=== PATIENT | female | born 1965 | race Caucasian/White ===

== ENCOUNTER 2018-02-18 15:58 | Emergency (ER) | payer OTHER ==
[2018-02-18 16:04] VITALS: BP 172/92; PULSE 79; TEMP 98
--- NOTE | 2018-02-18 16:04 | PDOC ---
Rapid Medical Evaluation Chief Complaint: Bite Time Seen by Provider: 02/18/18 16:02 Medical Evaluation: Allergies Allergy/AdvReac Type Severity Reaction Status Date / Time No Known Drug Allergies Allergy Verified 11/23/13 07:41 02/18/18 16:03 I have performed a brief in person evaluation of the patient. The patient presents with a CC of: cat bite PE: Skin: Pt has scratches to the right hand. Lungs: Clear Heart:RRR MS: Moves all extremities without difficulty Neuro: Alert and oriented Psych: Approrpriate affect I have ordered the following: nothing at this time. The patient will proceed to the [facility] for further evaluation. Discharge Disposition - Diagnosis Cat bite Qualifiers: Encounter type: initial encounter Qualified Code(s): W55.01XA - Bitten by cat, initial encounter - Referrals Referrals: Federico Schmidt MD [Primary Care Provider] - - Patient Instructions - Post Discharge Activity
[2018-02-18] MEDS ORDERED: AMOX TR/POT CLAV 875MG/125MG TABLETS (FP) PO STA (16:55)
[2018-02-18] MEDS ORDERED: DIPHTH,PERTUSS(ACELL),TET 0.5 ML DISP.SYRIN IM ONE (16:55)
[2018-02-18] MEDS ORDERED: BACITRACIN 15 GM TUBE TOPICAL OINTMENT TP ONE (16:57)
[2018-02-18] MEDS ORDERED: AMOX TR/POT CLAV 875MG/125MG TABLETS (FP) ONE (17:04)
[2018-02-18] MEDS ORDERED: BACITRACIN 15 GM TUBE TOPICAL OINTMENT ONE (17:04)
--- NOTE | 2018-02-18 17:09 | PDOC ---
History of Present Illness - General Chief Complaint: Bite Stated Complaint: ANIMAL BITE Time Seen by Provider: 02/18/18 16:02 History Source: Patient Exam Limitations: No Limitations - History of Present Illness Initial Comments: 02/18/18 17:09 52 yr female bit to her right hand by stray cat. cat was captured by [facility] and they [facility] the cat [facility] where it is being observed. Pt has a history of DM, tetanus unknown. pt washed hand GREEN BELT. Timing/Duration: reports: just prior to arrival Severity: Yes: moderate Location: reports: hands (right ) Past History - Past Medical History Allergies/Adverse Reactions: Allergies Allergy/AdvReac Type Severity Reaction Status Date / Time No Known Drug Allergies Allergy Verified 02/18/18 16:04 Home Medications: Ambulatory Orders Levothyroxine [Synthroid -] 25 mcg PO DAILY 09/15/12 Metoprolol Tartrate [Lopressor -] 25 mg PO BID 09/15/12 metFORMIN HCL [Glucophage -] 1,000 mg PO BID 09/15/12 Multivitamins [Multivit ([facility] Formulary)] 1 tab PO DAILY 11/19/13 Paroxetine HCl [Paxil] 20 mg PO HS 11/19/13 Topiramate [Topamax] 25 mg PO BID 11/19/13 Ibuprofen [Motrin -] 600 mg PO Q6H PRN #30 tablet 11/23/13 Amoxicillin/Potassium Clav [Augmentin 875-125 Tablet] 1 each PO BID #10 tablet 02/18/18 Anemia: No Asthma: No Cancer: No Cardiac Disorders: No CVA: No COPD: No CHF: No Dementia: No Diabetes: Yes GI Disorders: No Disorders: No HTN: Yes Hypercholesterolemia: Yes Liver Disease: No Seizures: No Thyroid Disease: Yes - Surgical History Abdominal Surgery: Yes (lavell valenzuela) Appendectomy: No Cardiac Surgery: No Cholecystectomy: Yes Lung Surgery: No Neurologic Surgery: No Orthopedic Surgery: No - Suicide/Smoking/Psychosocial Hx Smoking Status: No Smoking History: Never smoked Have you smoked in the past 12 months: No Number of Cigarettes Smoked Daily: 0 Hx Alcohol Use: No Drug/Substance Use Hx: No Substance Use Type: None Hx Substance Use Treatment: No Review of Systems - Review of Systems Able to Perform ROS?: Yes Is the patient limited Japanese proficient: No Constitutional: No: Symptoms Reported HEENTM: No: Symptoms Reported Respiratory: No: Symptoms reported Cardiac (ROS): No: Symptoms Reported ABD/GI: No: Symptoms Reported Integumentary: Yes: Symptoms Reported *Physical Exam - Vital Signs Last Vital Signs Temp Pulse Resp BP Pulse Ox 98 F 79 18 172/92 H 99 02/18/18 16:02 02/18/18 16:02 02/18/18 16:02 02/18/18 16:02 02/18/18 16:02 - Physical Exam General Appearance: Yes: Nourished, Appropriately Dressed HEENT: positive: EOMI, DARRIN Extremity: positive: Normal Capillary Refill, Tender (dorsal right hand with 3 puncture wounds cat bites and multiple superficial scratches no active bleeding) Integumentary: positive: Normal Color, Dry, Warm Neurologic: positive: Alert, Normal Mood/Affect, Normal Response, Motor Strength 5/5 Procedures - Additional Procedures Additional Procedures: other (wound irrigated with copious amounts of saline, betadine , bacitracin and bulky bandage placed ) ED Treatment Course - RADIOLOGY Radiology Studies Ordered: Category Date Time Status HAND- RIGHT [RAD] Stat Radiology 02/18/18 16:55 Ordered Medical Decision Making - Medical Decision Making 02/18/18 17:23 cc: cat bite and scratches to hand will get xray r/o fb update tetanus start Augmentin wound care irrigation 48hr follow up forms filled out for rabies per [facility] protocol all forms faxed by DORA Cotton in fast track pt given strict inst , pt aware catbites have high infection rate and that follow up is important 02/18/18 17:31 xray is negative for fb teeth *DC/Admit/Observation/Transfer Diagnosis at time of Disposition: Cat bite Qualifiers: Encounter type: initial encounter Qualified Code(s): W55.01XA - Bitten by cat, initial encounter - Discharge Dispostion Disposition: HOME Condition at time of disposition: Improved - Prescriptions Prescriptions: Amoxicillin/Potassium Clav [Augmentin 875-125 Tablet] 1 each PO BID #10 tablet - Referrals Referrals: Federico Schmidt MD [Primary Care Provider] - - Patient Instructions Printed Discharge Instructions: DI for Animal Bites Additional Instructions: follow up with your doctor on February 20 if you are unable to see your doctor you must return to ER for wound check on February 20 keep the wound bandaged and elevated in the sling apply ice every 2hrs for 15 minutes over the bandage take Augmentin twice a day for 5 days take ibuprofen 800mg every 8hrs for pain return sooner to ER for fever, increase pain any redness traveling up your arm or any other concerns - Post Discharge Activity
== END 2018-02-18 17:34 | disposition home or self-care (01) ==
LOC: JERFT 15:58
PROC: 3E0234Z Introduction of Serum, Toxoid and Vaccine into Muscle, Percutaneous Approach (ICD-10-PCS; principal; 2018-02-18)
DX: S61.451A Open bite of right hand, initial encounter (principal); S60.511A Abrasion of right hand, initial encounter; W55.01XA Bitten by cat, initial encounter; Y93.89 Activity, other specified; Y92.89 Other specified places as the place of occurrence of the external cause; Y99.8 Other external cause status; I10 Essential (primary) hypertension; E78.00 Pure hypercholesterolemia, unspecified; E03.9 Hypothyroidism, unspecified; E11.9 Type 2 diabetes mellitus without complications; Z79.84 Long term (current) use of oral hypoglycemic drugs
CPT/HCPCS: 73130-TC-RT-FY; 90715; 99281-25

== ENCOUNTER 2022-01-19 04:34 | Day surgery (SDC) | payer OTHER ==
[2022-01-19 10:45] VITALS: BMI 31.8
[2022-01-19 12:39] VITALS: TEMP 97.7
[2022-01-19 13:04] VITALS: PULSE 54
[2022-01-19 13:26] VITALS: BP 129/63; RESP 18
== END 2022-01-19 13:22 | disposition home or self-care (01) ==
LOC: JASU-ENDO 04:34
PROVIDERS: ATTEND Internal Medicine Gastroenterology
PROC: 0DB78ZX Excision of Stomach, Pylorus, Via Natural or Artificial Opening Endoscopic, Diagnostic (ICD-10-PCS; 2022-01-19)
PROC: 0DB98ZX Excision of Duodenum, Via Natural or Artificial Opening Endoscopic, Diagnostic (ICD-10-PCS; principal; 2022-01-19 11:00)
DX: K29.50 Unspecified chronic gastritis without bleeding (principal); R12 Heartburn
CPT/HCPCS: 82962; 88305-TC; 88342-TC

== ENCOUNTER 2022-10-10 04:22 | Day surgery (SDC) | payer OTHER ==
[2022-10-08 14:21] VITALS: BMI 30.9
[2022-10-10] MEDS ORDERED: KETAMINE HCL 500 MG/10 ML VIAL ONE (06:58)
[2022-10-10 08:29] VITALS: TEMP 98
[2022-10-10 09:58] VITALS: BP 128/71; PULSE 53; RESP 15
== END 2022-10-10 08:55 | disposition home or self-care (01) ==
LOC: JASU-ENDO 04:22
PROVIDERS: ATTEND Internal Medicine Gastroenterology
PROC: 0DBN8ZX Excision of Sigmoid Colon, Via Natural or Artificial Opening Endoscopic, Diagnostic (ICD-10-PCS; 2022-10-10)
PROC: 0DBP8ZX Excision of Rectum, Via Natural or Artificial Opening Endoscopic, Diagnostic (ICD-10-PCS; principal; 2022-10-10 08:00)
DX: Z12.11 Encounter for screening for malignant neoplasm of colon (principal); K63.5 Polyp of colon; K62.1 Rectal polyp; K57.30 Diverticulosis of large intestine without perforation or abscess without bleeding; Z86.010 Personal history of colon polyps; K92.1 Melena
CPT/HCPCS: 87045; 87046; 87209; 88305-TC

== ENCOUNTER 2024-01-06 23:00 | Emergency (ER) | payer OTHER ==
[2024-01-06 23:06] VITALS: BP 163/83; PULSE 78; RESP 20; TEMP 97.9; BMI 30.1
[2024-01-07] MEDS ORDERED: ACETAMINOPHEN INJECTION 100 ML ONE (00:29)
[2024-01-07] MEDS: ACETAMINOPHEN 1000 MG/100 ML BAG IVPB ONE (00:44)
[2024-01-07] MEDS: SODIUM CHLORIDE 0.9% 500 ML INFUS.BAG IV ONE (00:44)
[2024-01-07 00:55] LABS: BASO % 0.5 % (0-2.0); HEMATOCRIT 38.3 % (32.4-45.2); HEMOGLOBIN 12.8 GM/dL (10.7-15.3); LYMPH % 6.4 % (8-40); MCH 27.8 pg (25.7-33.7); MCHC 33.5 g/dl (32.0-36.0); MEAN CELL VOLUME 82.9 fl (80-96); MONO % 4.5 % (3.8-10.2); NEUT % 87.6 % (42.8-82.8); PLATELET COUNT 270 10^3/uL (134-434); RBC 4.61 M/mm3 (3.60-5.2); WHITE BLOOD COUNT 14.4 K/mm3 (4.0-10.0)
[2024-01-07 01:08] LABS: INR 0.91 (0.83-1.09); PROTHROMBIN TIME (PATIENT) 10.3 SEC (9.7-13.0)
[2024-01-07 01:11] LABS: ACTIVATED PTT 29.8 SECONDS (25.2-36.5)
[2024-01-07 01:14] LABS: POTASSIUM 4.1 mmol/L (3.5-5.1)
[2024-01-07 01:16] LABS: ALBUMIN 3.7 g/dl (3.4-5.0); CALCIUM 9.6 mg/dL (8.5-10.1)
[2024-01-07 01:18] LABS: BLOOD UREA NITROGEN 16.4 mg/dL (7-18)
[2024-01-07 01:20] LABS: CREATININE 0.7 mg/dL (0.55-1.3)
[2024-01-07 01:21] LABS: BILIRUBIN,TOTAL 0.6 mg/dL (0.2-1); TOT PROT 7.5 g/dl (6.4-8.2)
[2024-01-07] MEDS ORDERED: ONDANSETRON 4 MG/2 ML VIAL ONE (02:27)
[2024-01-07] MEDS: ONDANSETRON 4 MG/2 ML VIAL IVPUSH ONE (02:35)
== END 2024-01-07 04:13 | disposition home or self-care (01) ==
LOC: JER 23:00
PROC: 3E033NZ Introduction of Analgesics, Hypnotics, Sedatives into Peripheral Vein, Percutaneous Approach (ICD-10-PCS; principal; 2024-01-07)
PROC: 3E033GC Introduction of Other Therapeutic Substance into Peripheral Vein, Percutaneous Approach (ICD-10-PCS; 2024-01-07)
DX: K29.70 Gastritis, unspecified, without bleeding (principal); R74.8 Abnormal levels of other serum enzymes; R11.2 Nausea with vomiting, unspecified; R07.89 Other chest pain; R10.13 Epigastric pain; R19.7 Diarrhea, unspecified; Z20.822 Contact with and (suspected) exposure to COVID-19
CPT/HCPCS: 0241U-QW; 36415; 71046-TC-FY; 74177-TC; 80053; 83690; 84478; 84484; 85025; 85610; 85730; 93005; 93010; 99285-25; J0131; Q9967

== ENCOUNTER → 2024-02-12 | Day surgery (SDC) | payer OTHER | END | disposition home or self-care (01) | LOC: JRADIR 12:23 | PROVIDERS: ATTEND Internal Medicine | PROC: 0G9H3ZX Drainage of Right Thyroid Gland Lobe, Percutaneous Approach, Diagnostic (ICD-10-PCS; principal; 2024-02-12) | DX: E04.1 Nontoxic single thyroid nodule (principal) | CPT/HCPCS: 10005; 76942; 88173; 88305-TC ==